=== PATIENT | female | born 1980 | race Caucasian/White ===

== ENCOUNTER 2020-05-23 07:38 | Outpatient (RCR) | payer OTHER, SELFPAY ==
--- NOTE | 2020-05-23 07:39 | PTOPEVAL ---
Thank you for referring Alcira Rice to [facility].? The patient is scheduled to be seen for therapy? __2__x/week for 8 visits. Please review, sign, date and return this plan of care GUY. I agree with and certify that the following plan of care is medically necessary. Referring Physician Date Admitting Provider: Attending Provider: PHYSICIAN NOT ON STAFF Referring Provider: *PT Outpatient Evaluation Start: 05/23/20 06:52 Freq: Status: Active Protocol: Document 05/23/20 06:52 MEMO (Rec: 05/23/20 07:39 MEMO [email or web address]) Therapy Assessment Status Assessment Status Assessment Status Evaluation Evaluation Information Problem Diagnosis left shoulder pain Onset 02/22/20 Subjective Information Pt. reports she was in the Query Text:As Reported By Patient/ process of restraining a pt. Family and pt. began to spasm and pulled the left shoulder. Pt. reports experiencing a pop in the left shoulder. She noted immediate pain with the pop. She has undergone MRI in March. She reports she has burning in the front of the left shoulder and tingling all the way down to the left hand . She reports that her pain is constant. She reports that she cannot sleep well due to her pain. She reports 3-4 hours of sleep per night. She reports that her goal is to reduce her pain and return to work. 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
--- NOTE | 2020-06-17 16:54 | PTOPEVAL ---
Thank you for referring Alcira Rice to [facility].? The patient is scheduled to be seen for therapy? __2__x/week for 6 visits. Please review, sign, date and return this plan of care GUY. I agree with and certify that the following plan of care is medically necessary. Referring Physician Date Admitting Provider: Attending Provider: PHYSICIAN NOT ON STAFF Referring Provider: *PT Outpatient Evaluation Start: 05/23/20 06:52 Freq: Status: Active Protocol: Document 06/17/20 16:21 MEMO (Rec: 06/17/20 16:53 MEMO [email or web address]) Therapy Assessment Status Assessment Status Assessment Status Progress Evaluation Information Problem Diagnosis left shoulder pain Onset 02/22/20 Subjective Information Pt. reports that she notes Query Text:As Reported By Patient/ improvement in her ROM. She Family states that pain levels remain the same. She continues to note difficulty with carrying light objects with the left arm, such as a jug of milk. She reports that reaching overhead is still impossible. She reports that with improvement in ROM she states that she would like to continue to attempt to further improve mobility and strength , as well as decrease pain. Pain Assessment Timing of Pain Assessment Timing of Pain Assessment Pre-Treatment Pain Scale Pain Scale Used Numeric (1 - 10) Self Report Pain Assessment Left Shoulder(s) Reported Pain Level 7 Lowest Pain Intensity 5 Greatest Pain Intensity 10 Pain Aggravating Factors Exercise/Activity,Lifting Additional Pain Comments Pt. continues to note difficulty with sleep due to pain Pain Score Pain Score 7: Self Report Interventions Used Interventions Used By Clinicians Electrical Stimulation, Exercise,Heat,Manual Therapy Techniques Upper Extremity Range of Motion General Upper Extremity Range of Motion Gross Upper Extremity Range of Motion left shoulder flexion 130 Comments degrees left shoulder ER 82 degrees left shoulder IR 68 degrees Upper Extremity Muscle Strength Testing General Upper Extremity Strength Gross Upper Extremity Strength Comments left shoulder flexion 3+/5 left shoulder abduction 3+/5
--- NOTE | 2020-06-29 07:47 | PCPTNOTE ---
06/29/2020 Alcira Rice has been seen for a total of 12 outpatient visits with 100% compliancy. Ms. Rice is being seen for left shoulder pain. Patient rates her pain this date a 6/10 pre treatment and a 9/10 post stretching. Alcira's treatment consists of Moist Heat/Interferential electrical stimulation to increase tissue extensibility and decrease pain followed by manual therapy of IASTM to pectoralis and left upper trap. Passive stretching follows her modalities and manual therapy treatment in all planes. Patient also educated and performed AAROM pulleys, lean aways to increase range of motion. Initiated gentle scapular strengthening with theraband. PROM left shoulder Flexion 136 degrees * * denotes pain ER 80 degrees * IR 74 degrees * MMT: Flexion 3+/5 ER/IR 3+/5 Shoulder Special Tests Empty Can Positive left Speeds Test Positive left Cheng Aidan Test Positive left Lynette Trevino PTA / Ifeanyi Holden DPT
--- NOTE | 2020-07-08 08:00 | PTOPEVAL ---
Thank you for referring Alcira Rice to [facility].? The patient is scheduled to be seen for therapy? ____x/week for ___ weeks. Please review, sign, date and return this plan of care GUY. I agree with and certify that the following plan of care is medically necessary. Referring Physician Date Admitting Provider: Attending Provider: PHYSICIAN NOT ON STAFF Referring Provider: *PT Outpatient Evaluation Start: 05/23/20 06:52 Freq: Status: Active Protocol: Document 07/08/20 07:31 Haile (Rec: 07/08/20 07:53 [facility] [email or web address]) Therapy Assessment Status Assessment Status Assessment Status Re-evaluation Evaluation Information Problem Diagnosis left shoulder pain Additional Evaluation Detail quick dash = 61% functionally declined Subjective Information patient reports she went to Query Text:As Reported By Patient/ her MD last week for follow up Family . she reports she is to continue skilled PT and is still restricted to light duty at work. she is on a 10lb lifting restriction. she reports she has pain continuously still in the L shoulder. she reports this pain is worse with reaching to end rom in all directions, and with lifting weight ofany amount. Pain Assessment Timing of Pain Assessment Timing of Pain Assessment Assessment Pain Scale Pain Scale Used Numeric (1 - 10) Self Report Pain Assessment Left Shoulder(s) Reported Pain Level 7 Lowest Pain Intensity 6 Greatest Pain Intensity 10 Pain Score Pain Score 7: Self Report Interventions Used Interventions Used By Clinicians Activity or ADL's,Education, Electrical Stimulation, Exercise,Heat Upper Extremity Range of Motion General Upper Extremity Range of Motion Gross Upper Extremity Range of Motion L shoulder AROM flex = 142 Comments degrees, PROM flex = 145 degrees L shoulder AROM ER = 70 degrees, PROM ER = 75 degrees L shoulder AROM IR = 60 degrees, PROM IR = 65 degrees Upper Extremity Muscle Strength Testing General Upper Extremity Strength Gross Upper Extremity Strength Comments L shoudler flex = 3+/5 L shoulder abd = 3+/5 L shoulder ER = 3+/5 L s
--- NOTE | 2020-08-10 07:58 | PTOPEVAL ---
Thank you for referring Alcira Rice to [facility]. I agree with and certify that the following plan of care is medically necessary. Referring Physician Date Admitting Provider: Attending Provider: PHYSICIAN NOT ON STAFF Referring Provider: *PT Outpatient Evaluation Start: 05/23/20 06:52 Freq: Status: Active Protocol: Document 08/10/20 06:58 MEMO (Rec: 08/10/20 07:53 [facility] [email or web address]) Therapy Assessment Status Assessment Status Assessment Status Discharge Evaluation Information Problem Subjective Information Pt. reports that her pain Query Text:As Reported By Patient/ levels remain the same. She Family states that she still notes pain with any type of lifting and states that she fears she cannot fullfil her work duties due to her u.e. pain. she states that she continues to exercise daily to address strength and mobility despite continued pain. Pain Assessment Timing of Pain Assessment Timing of Pain Assessment Pre-Treatment Pain Scale Pain Scale Used Numeric (1 - 10) Self Report Pain Assessment Left Shoulder(s) Reported Pain Level 7 Lowest Pain Intensity 6 Greatest Pain Intensity 10 Pain Aggravating Factors Exercise/Activity,Lifting Pain Score Pain Score 7: Self Report Interventions Used Interventions Used By Clinicians Electrical Stimulation, Exercise,Heat Upper Extremity Range of Motion General Upper Extremity Range of Motion Gross Upper Extremity Range of Motion left shoulder AROM ER= 78 Comments degrees left shoulder IR AROM= 70 degrees left shoulder flexion AROM= 140 degrees continue to note pain at end range flexion and ER of the left shoulder Upper Extremity Muscle Strength Testing General Upper Extremity Strength Gross Upper Extremity Strength Comments left shoulder flexion 4-/5 left shoulder ER 4-/5 left shoulder IR 4/5 Special Tests-Upper Extremity Shoulder Special Tests Speed's Test Positive Left Active Compression Test (Hunt's) Positive Left Shoulder Special Tests Comments Neers Impingement positive left General Exercise General Exercises Exercise Description -19 minutes of PROM addressing Query Text:Record Sets, Reps,
== END 2020-08-10 13:45 | disposition home or self-care (01) ==
LOC: CHSPT 07:38
DX: M25.512 Pain in left shoulder (principal)
CPT/HCPCS: 97014; 97110; 97140; 97161; G0283

== ENCOUNTER 2020-12-05 07:40 | Outpatient (RCR) | payer OTHER, SELFPAY ==
--- NOTE | 2020-12-05 07:48 | PTOPEVAL ---
Thank you for referring Alcira Rice to [facility]. Please review, sign, date and return this plan of care [facility]. I agree with and certify that the following plan of care is medically necessary. Referring Physician Date Admitting Provider: Attending Provider: Jame Obrien MD Referring Provider: *PT Outpatient Evaluation Start: 12/05/20 06:58 Freq: Status: Active Protocol: Document 12/05/20 06:59 MEMO (Rec: 12/05/20 07:47 MEMO [email or web address]) Therapy Assessment Status Assessment Status Assessment Status Evaluation Evaluation Information Problem Diagnosis left shoulder pain Onset 02/22/20 Subjective Information Pt. reports that she initially Query Text:As Reported By Patient/ injured the left shoulder Family while attempting to restrain a pt. so she didnt pull her trachea lines. She reports that she underwent MRI and xray and found a tear in the cartilage of the left shoulder . She reports that she still has pain with any type of left shoulder movement. She states that she can have pain at rest, but is sometimes pain free at rest. She reports that she cannot lay on her left side making sleep difficult and wakes frequently . 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 She states that any type of lifting is difficult due to pain. she reports that she attempted to lift her laundry basket and dropped the basket the other day due to pain. She states that prior to her injury she worked at a [employer], which required a large amount of lifting and moving patients. She states that she is concerned that she will not be able to do her job safely due to her shoulder injury. She reports that her goal for therapy is to determine her capabilities for
== END 2020-12-05 11:03 | disposition home or self-care (01) ==
LOC: CHSPT 07:40
PROVIDERS: PCP Internal Medicine; Visit Provider Internal Medicine
DX: M25.512 Pain in left shoulder (principal)
CPT/HCPCS: 97161

== ENCOUNTER 2021-09-01 11:58 | Emergency (ER) | payer BC, SELFPAY ==
[2021-09-01 12:01] VITALS: BP 151/101; PULSE 93; RESP 14; O2SAT 100
--- NOTE | 2021-09-01 12:42 | ED.ALLEREA ---
HPI - Allergic Reaction General Chief complaint: Allergic Reaction <WENDY Mcdermott Last Filed: 09/01/21 14:42> Stated complaint: Allergic Reaction <WENDY Mcdermott Last Filed: 09/01/21 14:42> Time Seen by Provider: 09/01/21 12:28 <WENDY Mcdermott Last Filed: 09/01/21 14:42> Source: patient <WENDY Mcdermott Last Filed: 09/01/21 14:42> Mode of arrival: ambulatory <WENDY Mcdermott Last Filed: 09/01/21 14:42> Limitations: no limitations <WENDY Mcdermott Last Filed: 09/01/21 14:42> History of Present Illness HPI narrative: This is a 40 year old female that presents to the ER for possible allergic reaction. Reports she was at work and around 9:30 this morning she took a drink of a soda from the refrigerator. Reports soon after she started to feel as though her tongue was swollen. Reports she took 25mg of Benadryl and a dose of Pepcid. Reports she has had ongoing swelling of the tongue. 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 Otherwise no known allergies. No known exposures today. Reports feeling short of breath due to swelling of tongue. Denies fever, rash or vomiting. <WENDY Mcdermott Last Filed: 09/01/21 14:42> Related Data Allergies/adverse reactions: Allergies Allergy/AdvReac Type Severity Reaction Status Date / Time Penicillins Allergy Unknown Hives Verified 09/01/21 12:04 iohexol Allergy Hives Verified 09/01/21 12:05 [From contrast - CT, X-RAY] tree nut Allergy Anaphylaxis Verified 09/01/21 12:04 <WENDY Mcdermott Last Filed: 09/01/21 14:42> Review of Systems Review of Systems: CONSTITUTIONAL: Denies fever RESPIRATORY: Reports dyspnea. SKIN: Denies rash or itching. <WENDY Mcdermott Last Filed: 09/01/21 14:42> All systems reviewed & are unremarkable except as noted in HPI and below <Clara Arambula PA-C - Last Filed: 09/01/21 14:42> PMFSH Past Medical History Medical History: Medical History (Updated 09/01/21 @ 14:39 by Clara Arambula PA-C) History of hypothyroidism <Clara Arambula PA-C - Last Filed: 09/01/21 14:42> Family History Family History: Family History (Updated 08/01/16 @ 14:19 by DOCTOR UNKNOWN) Other Family history of arthritis <Clara Arambula PA-C - Last Filed: 09/01/21 14:42> Social History Social History: Social History Smoking status: Never smoker Alcohol intake: current <Clara Arambula PA-C - Last Filed: 09/01/21 14:42> Exam Narrative: GENERAL: Well-appearing, well-nourished, and in no acute distress. HEAD: Normocephalic, atraumatic. EYES: EOMI. ENT: Nares clear, no rhinorrhea or epistaxis. Mucous membranes moist. Oropharynx without tonsillar hypertrophy exudate or other lesions. NECK: Supple. No adenopathy or masses. CHEST: Clear to auscultation. No respiratory distress. No wheezes rales or rhonchi HEART: Regular rate and rhythm. No murmur heard. Normal peripheral pulses. EXTREMITIES: Normal range of motion. No edema. SKIN: Warm, dry, no rash. NEURO: No focal deficits. Alert and oriented x3. PSYCH: Normal mood and affect <Clara Arambula PA-C - Last Filed: 09/01/21 14:42> Course [employer]PA[employer]ER [employer]/PA Physician Supervision For this patient encounter, I reviewed the BRAKE REPAIRER [employer] or PA documentation, treatment plan, and medical decision making <Juan David Morrison MD - Last Filed: 09/01/21 18:44> Vital Signs Vital signs: Vital Signs Pulse Rate 93 09/01/21 12:01 Respiratory Rate 14 09/01/21 12:01 Blood Pressure 151/101 H 09/01/21 12:01 Pulse Oximetry 100 09/01/21 12:01 Temperature 97.7 F 09/01/21 13:01 Pulse Rate 70 09/01/21 15:05 Respiratory Rate 22 H 09/01/21 15:05 Blood Pressure 108/80 09/01/21 15:05 Pulse Oximetry 100 09/01/21 15:05 <Clara Arambula PA-C - Last Filed: 09/01/21 14:42> Vital Signs Pulse Rate 93 09/01/21 12:01 Respiratory Rate 14 09/01/21 12:01 Vanessa
[2021-09-01] MEDS: methylPREDNISolone SOD SUCC 125 MG VIAL IV PUSH (12:47)
[2021-09-01] MEDS: diphenhydrAMINE HCl INJ 50 MG/ML VIAL 25 MG IV PUSH (12:48)
[2021-09-01 13:01] VITALS: BP 108/65; PULSE 64; RESP 14; TEMP 36.5; O2SAT 100
[2021-09-01 15:05] VITALS: BP 108/80; PULSE 70; RESP 22; O2SAT 100
== END 2021-09-01 15:05 | disposition home or self-care (01) ==
PROVIDERS: Emergency Provider Emergency Medicine; PCP Internal Medicine
DX: T78.40XA Allergy, unspecified, initial encounter (principal); E03.9 Hypothyroidism, unspecified
CPT/HCPCS: 96374; 96375; 99284; J1200; J2930